=== PATIENT | female | born 2000 | race Two or more races ===

== ENCOUNTER 2023-10-13 11:40 | Emergency (ER) | payer SELFPAY ==
[~2023-10-13] VITALS: Ht 157.5 cm; Wt 44.1 kg
[2023-10-13 11:50] VITALS: BP 154/69; PULSE 91; RESP 19; O2SAT 98
[2023-10-13] MEDS ORDERED: SODIUM CHLORIDE 0.9% 1,000 ML IV ONE (12:00)
[2023-10-13] MEDS ORDERED: PANTOPRAZOLE 40 MG/10 ML VIAL INJ IV ONE (12:00)
[2023-10-13] MEDS ORDERED: PROCHLORPERAZINE EDISYLATE 5 MG/ML 2ML VIAL IV ONE (12:00)
== END 2023-10-13 16:34 | disposition left against medical advice (07) ==
LOC: ER 11:40
DX: F12.90 Cannabis use, unspecified, uncomplicated (principal); R11.2 Nausea with vomiting, unspecified